=== PATIENT | female | born 1980 | race African-American/Black ===

== ENCOUNTER 2019-10-31 18:59 | Observation (INO) ==
[2019-10-31] MEDS ORDERED: IBUPROFEN 800 MG TABLET PO STA (19:09)
[2019-10-31 20:01] LABS: Basophils % 0.2 % (0.0-0.8); Eosinophils # 0.1 10*3/uL (0.0-0.87); Eosinophils % 0.5 % (0.00-10.9); Hematocrit 41.9 VOL% (35.7-47.0); Hemoglobin 12.9 GM/DL (12.0-16.0); Immature Granulocytes % 0.4 %; Immature Granulocytes Absolute 0.07 #; Lymphocytes # 1.3 10*3/uL (1.4-4.0); Lymphocytes % 7.6 % (21.3-54.2); Mean Corpuscular HGB Conc 30.8 GM/DL (32-36); Mean Corpuscular Volume 92.3 FL (87-102); Mean Platelet Volume 9.9 FL (9.6-12.0); Monocytes % 6.6 % (1.7-12.7); Neutrophils % 84.7 % (38.7-73.9); Platelet Count 244 T/CUMM (130-400); Red Blood Count 4.54 MC/CUMM (3.8-5.5); Red Cell Distribution Width 13.2 % (9.3-17.3); White Blood Count 17.1 T/CUMM (4-12)
[2019-10-31 20:29] LABS: Albumin 3.7 G/DL (3.4-5.0); Bilirubin,Total 0.4 MG/DL (0.2-1.0); Calcium 9.1 MG/DL (8.5-10.1); Osmolality,Calculated 275.7 MOS/KG (273-304); Total Protein 8.3 G/DL (6.4-8.3)
[2019-10-31 20:58] LABS: Apearance,Urine CLEAR (Clear); Bilirubin,Urine Negative (Negative); Blood, Urine Negative (Negative); Glucose,Urine (UA) 50 mg/dL (Negative); Ketones,Urine 20 mg/dL (Negative); Mucus,Urine Occasional /LPF (Occasional); Nitrite,Urine Negative (Negative); Protein,Urine 30 MG/DL; RBC,Urine 13 /HPF (0-4); Squamous Epithelial Cell,Urine Occasional /HPF (0-10); Urine Color Amber (Yellow); Urine Specific Gravity 1.035 (1.001-1.035); WBC,Urine 34 /HPF (0-6)
[2019-10-31] MEDS ORDERED: ONDANSETRON 4 MG/2 ML VIAL IV PRN (21:04)
[2019-10-31] MEDS: SODIUM CHLORIDE 0.9% 1,000 ML IV SCH (22:55)
[2019-10-31] MEDS: metroNIDAZOLE INJ 500 MG in PREMIX 1 EACH IV SCH (22:55)
[2019-11-01] MEDS: SODIUM CHLORIDE 0.9% 1,000 ML IV SCH (10:14)
[2019-11-01] MEDS ORDERED: MORPHINE 4 MG/1 ML VIAL IV ONE (10:42)
[2019-11-01] MEDS: metroNIDAZOLE INJ 500 MG in PREMIX 1 EACH IV SCH (11:23)
[2019-11-01 12:47] VITALS: BP 125/81
[2019-11-01] MEDS ORDERED: ceFAZolin 2,000 MG in SYRINGE 1 EACH IV SCH (22:00)
== END 2019-11-01 12:50 | disposition home or self-care (01) ==
LOC: N.ED 18:59 → N.EDINP 21:04 → N.3E 21:34 → INTOOBSV 21:36
PROVIDERS: ADMIT Obstetrics & Gynecology; ATTEND Obstetrics & Gynecology